=== PATIENT | female | born 1975 | race Caucasian/White ===

== ENCOUNTER 2022-08-06 00:25 | Day surgery (SDC) | payer BC, SELFPAY ==
[2022-07-23 14:12] VITALS: BMI 25.7
[2022-08-06 10:04] VITALS: BP 143/92; PULSE 73; RESP 18; TEMP 37.1; O2SAT 98
[2022-08-06] MEDS: LACTATED RINGERS 1,000 ML 150 ML IV CONT (10:20)
--- NOTE | 2022-08-06 10:33 | PM.HPGS ---
History of Present Illness History of Present Illness Consent: Risks, benefits, and alternatives have been discussed and questions answered. Patient agrees to proceed with procedure. Chief complaint: GERD, esophageal spasm Narrative: Brianne Pearl is a 46 year old female here for egd, about 10 years of intermittent esophageal spasm that will last up to 1 day, recent esophageal manometry normal LES function and motility but some extra wave contractions. Review of Systems Constitutional: Constitutional: Denies headache(s) and Denies weakness Eyes: Eyes: Denies blurry vision ENT: Reports Normal hearing present, Denies headache(s) and Denies neck pain Cardiovascular: Cardiovascular: Denies chest pain and Denies dyspnea Respiratory: Respiratory: Denies dyspnea Gastrointestinal: Gastrointestinal: Reports no additional gastrointestinal complaints Genitourinary: Genitourinary: Denies dysuria Musculoskeletal: Musculoskeletal: Denies neck pain Integumentary/Breasts: Skin/Breast: Denies dry skin Neurologic: Reports Normal hearing present, Denies headache(s) and Denies weakness Psychiatric: Psychiatric: Denies anxiety Endocrine: Endocrine: Denies change in body appearance Hematologic/Lymphatic: Hematologic/Lymphatic: Denies easy bleeding Allergic/Immunologic: Allergic/Immunologic: Denies urticaria [facility] Past Medical History Medical History (Updated 07/01/22 @ 15:36 by Darius Moe MD) Anxiety Esophageal spasm GERD (gastroesophageal reflux disease) Hiatal hernia Ventral hernia Social History Social History (Updated 07/01/22 @ 15:17 by Kassandra Shipley CMA) Smoking packs per day: 0.5 Smoking cigarettes per day: 10.0 Smoking status: Former smoker Tobacco type: cigarettes Alcohol intake: never Substance use: never Substance use type: does not use Living arrangements: with family Spiritual care concerns: No Meds Home Medications and Allergies Home Medications Medication Instructions Recorded Confirmed Type alprazolam 0.5 mg tablet 0.5 mg PO BID 06/28/22 07/23/22 History atorvastatin 80 mg tablet 80 mg PO DAILY 06/28/22 07/23/22 History diclofenac sodium 1 % topical gel 4 g topical QID 06/28/22 07/23/22 History (Voltaren Arthritis Pain) diphenhydramine HCl 25 mg tablet 25 mg PO QHS PRN Sleep 06/28/22 07/23/22 History (Benadryl Allergy) fluoxetine 20 mg capsule 20 mg PO TID 06/28/22 07/23/22 History melatonin 3 mg capsule 3 mg PO QHS PRN Sleep 06/28/22 07/23/22 History omeprazole 40 mg capsule,delayed 40 mg PO BID 06/28/22 07/23/22 History release promethazine 25 mg tablet 25 mg PO TID PRN Nausea 06/28/22 07/23/22 History trazodone 150 mg tablet 150 mg PO QHS PRN Sleep 06/28/22 07/23/22 History famotidine 20 mg tablet 20 mg PO BID 07/01/22 07/23/22 History hydromorphone 2 mg tablet 2 mg PO Q6H 07/01/22 07/23/22 History (Dilaudid) dicyclomine 20 mg tablet 20 mg PO QID PRN Spasms 07/23/22 07/23/22 History Allergies Allergy/AdvReac Type Severity Reaction Status Date / Time Sulfa (Sulfonamide Allergy Mild Hives Verified 08/06/22 09:58 Antibiotics) Vital Signs Vital Signs - 24 hr 08/06/22 10:04 Temperature 98.8 F Pulse Rate 73 Respiratory Rate 18 Blood Pressure 143/92 H Pulse Oximetry 98 Oxygen Delivery Room Air Exam Const: General: comfortable and no acute distress HENMT: General nose exam: Normal nares present Eyes: General: appearance normal, both eyes and all related structures Neck: Neck: no JVD Resp: Auscultation: clear to auscultation bilaterally Cardio: Rate: regular rate Rhythm: regular rhythm GI: Inspection: non-distended GI Palp: Yes Soft to palpation Skin: General skin exam: normal color Neuro: General: gait normal Speech: normal speech Extrem: General: normal to inspection Psych: Mental Status: mental status grossly normal Assessment and Plan Assessment and plan (1) GERD (gastroesophageal
--- NOTE | 2022-08-06 10:35 | WPDANESEPPF ---
Anes - Initial Pre Proc Eval Procedure: Operation Date: 08/06/22 11:30 Proposed Procedures p Esophagogastroduodenoscopy - Darius Moe MD Date/Time: 08/06/22 10:35 Surgeon: Darius Moe MD Pre Op Diagnosis: GERD, esophageal spasm Patient Data Age: 46 Gender: F Height: 1.75 m Weight: 80.3 kg Last Vital Signs Temp 98.8 F 08/06/22 10:04 Pulse 73 08/06/22 10:04 Resp 18 08/06/22 10:04 BP 143/92 H 08/06/22 10:04 Pulse Ox 98 08/06/22 10:04 O2 Del Method Room Air 08/06/22 10:04 Allergies Allergy/AdvReac Type Severity Reaction Status Date / Time Sulfa (Sulfonamide Allergy Mild Hives Verified 08/06/22 09:58 Antibiotics) Home Medications Medication Instructions Recorded Confirmed Type alprazolam 0.5 mg tablet 0.5 mg PO BID 06/28/22 07/23/22 History atorvastatin 80 mg tablet 80 mg PO DAILY 06/28/22 07/23/22 History diclofenac sodium 1 % topical gel 4 g topical QID 06/28/22 07/23/22 History (Voltaren Arthritis Pain) diphenhydramine HCl 25 mg tablet 25 mg PO QHS PRN Sleep 06/28/22 07/23/22 History (Benadryl Allergy) fluoxetine 20 mg capsule 20 mg PO TID 06/28/22 07/23/22 History melatonin 3 mg capsule 3 mg PO QHS PRN Sleep 06/28/22 07/23/22 History omeprazole 40 mg capsule,delayed 40 mg PO BID 06/28/22 07/23/22 History release promethazine 25 mg tablet 25 mg PO TID PRN Nausea 06/28/22 07/23/22 History trazodone 150 mg tablet 150 mg PO QHS PRN Sleep 06/28/22 07/23/22 History famotidine 20 mg tablet 20 mg PO BID 07/01/22 07/23/22 History hydromorphone 2 mg tablet 2 mg PO Q6H 07/01/22 07/23/22 History (Dilaudid) dicyclomine 20 mg tablet 20 mg PO QID PRN Spasms 07/23/22 07/23/22 History Patient hx anesthesia problems: none Family hx anesthesia problems: none Results Review: All pre-operative results and documents have been reviewed as part of the pre-operative evaluation. [facility] Past Medical History Medical History (Updated 07/01/22 @ 15:36 by Darius Moe MD) Anxiety Esophageal spasm GERD (gastroesophageal reflux disease) Hiatal hernia Ventral hernia Social History Social History (Updated 07/01/22 @ 15:17 by Kassandra Shipley CMA) Smoking packs per day: 0.5 Smoking cigarettes per day: 10.0 Smoking status: Former smoker Tobacco type: cigarettes Alcohol intake: never Substance use: never Substance use type: does not use Living arrangements: with family Spiritual care concerns: No Anes - Eval Final PreProcedure Day of Procedure 08/06/22 10:35 Patient weight: normal Heart: regular rate and rhythm Lungs: clear to auscultation Airway: Mallampati scale class II Neurological: alert and oriented Last oral intake: >/= 8 hours ASA classification: II Emergent: no Anesthetic plan: proceed Anesthesia type and monitoring: general GIVS and standard monitoring Results Review: All pre-operative results and documents have been reviewed as part of the pre-operative evaluation. Informed Consent: The patient's anesthetic plan and its attendant risks and benefits were discussed with the patient/family/POA. Questions were solicited and answers provided to the satisfaction of the patient/family/POA.
[2022-08-06 10:47] VITALS: BP 125/92; PULSE 73; RESP 18; O2SAT 98
[2022-08-06 10:57] VITALS: BP 140/95; PULSE 66; RESP 15; O2SAT 98
[2022-08-06 11:07] VITALS: BP 138/94; PULSE 59; RESP 18; O2SAT 95
== END 2022-08-06 11:18 | disposition home or self-care (01) ==
PROVIDERS: Visit Provider Internal Medicine Gastroenterology
PROC: 0DJ08ZZ Inspection of Upper Intestinal Tract, Via Natural or Artificial Opening Endoscopic (ICD-10-PCS; CPT 43235; principal; 2022-08-06 11:30)
DX: R07.89 Other chest pain (principal); K22.4 Dyskinesia of esophagus; K44.9 Diaphragmatic hernia without obstruction or gangrene; F41.9 Anxiety disorder, unspecified; K21.9 Gastro-esophageal reflux disease without esophagitis; K29.50 Unspecified chronic gastritis without bleeding; K43.9 Ventral hernia without obstruction or gangrene; Z87.891 Personal history of nicotine dependence
CPT/HCPCS: 43239; 88305; J2704; J7120